=== PATIENT | female | born 1990 | race Caucasian/White ===

== ENCOUNTER 2024-04-29 17:40 | Emergency (ER) | payer BC ==
[~2024-04-29 17:40] MED LIST: Iopamidol 370 76% 100 ML VIAL ONE
[2024-04-29] MEDS ORDERED: fentaNYL 50 mcg/mL 1 mL Vial ONE (18:25)
[2024-04-29 18:39] LABS: Prothrombin Time 13.6 sec (12.0-14.7)
[2024-04-29 18:41] LABS: #Basophils 0.1 thou/uL (0.0-0.2); #Eosinphils 0.4 thou/uL (0.0-0.7); #Lymphocytes 1.3 thou/uL (1.20-3.40); #Monocytes 0.5 thou/uL (0.11-0.59); #Neutrophils 4.1 thou/uL (1.40-6.50); %Lymphocytes 20.9 % (21.0-51.0); %Monocytes 7.2 % (0.0-10.0); %Neutrophils 64.9 % (42.0-75.0); Hematocrit 30.2 % (36.0-47.0); Hemoglobin 9.1 g/dL (12.0-16.0); Mean Corpuscular HGB CONC 30.1 g/dL (32.0-36.0); Mean Corpuscular Hemoglobin 21.9 pg (27.0-31.0); Mean Corpuscular Volume 72.8 fl (78.0-98.0); Mean Platelet Volume 7.8 fL (7.4-10.4); Platelet Count 194 10x3/uL (130-400); Red Blood Cell (RBC) Count 4.14 mill/uL (4.20-5.40); White Blood Cell (WBC) Count 6.2 10x3/uL (4.8-10.8)
[2024-04-29 18:42] LABS: BHCG - Serum Negative (NEGATIVE); Pregs Control Background? CLEAR/WHITE (CLR/WHITE); Pregs Control Bar Appear? YES (CONTROL BAR)
[2024-04-29] MEDS ORDERED: Ondansetron PF 4 MG/2 ML Vial ONE (18:48)
[2024-04-29 18:51] LABS: ALT (SGPT) 12 U/L (8-55); AST (SGOT) 15 U/L (5-34); Albumin 3.8 g/dL (3.5-5.0); Alkaline Phosphatase 65 U/L (40-110); Anion Gap 11 mmol/L (10-20); BUN (Urea Nitrogen) 8 mg/dL (7.0-18.7); Bilirubin, Total 0.2 mg/dL (0.2-1.2); Calc. Creatinine Clearance 0 mL/min (70-130); Calcium 8.5 mg/dL (7.8-10.44); Carbon Dioxide 23 mmol/L (22-29); Chloride 108 mmol/L (98-107); Estimated GFR 120; Globulin 3.1 g/dL (2.4-3.5); Glucose 94 mg/dL (70-105); Lipase 24 U/L (8-78); Potassium 3.8 mmol/L (3.5-5.1); Protein, Total 6.9 g/dL (6.0-8.3); Sodium 138 mmol/L (136-145)
[2024-04-29 19:06] LABS: Hypochromia SLIGHT = 6-15 cells (100X) (0-5/hpf); Microcytosis SLIGHT = 6-15 cells (100X) (0-5/hpf)
[2024-04-29] MEDS ORDERED: Promethazine HCl 25 MG/ML VIAL ONE (19:17)
[2024-04-29] MEDS ORDERED: Sodium Chloride 0.9% 1,000 ML ONE (19:17)
[2024-04-29] MEDS ORDERED: Ketorolac Tromethamine 30 MG (1 mL) VIAL ONE (20:03)
[2024-04-29] MEDS ORDERED: Orphenadrine Citrate 60 MG/2 ML VIAL ONE (20:03)
[2024-04-29 20:04] LABS: Bilirubin Negative (Negative); Blood, Urine Moderate (Negative); Clarity Hazy (Clear); Glucose, Urine (Dipstick) Negative (Negative); Ketone, Urine Negative (Negative); Leukocyte Negative (Negative); Nitrite Negative (Negative); Protein, Urine (Dipstick) 30 mg/dL (Neg-Trace)
[2024-04-29 20:05] LABS: CAUTI Indications for Culture Pelvic or flank pain; RBC/HPF Greater than 50 HPF (0-3); Squamous Epithelial 0-3 HPF (0-3); Urine Culture Reflex No No; WBC/HPF None Seen HPF (0-3)
== END 2024-04-29 21:30 | disposition home or self-care (01) ==
LOC: MADERS 17:40
DX: S83.91XA Sprain of unspecified site of right knee, initial encounter (principal); D64.9 Anemia, unspecified; R11.0 Nausea; V49.9XXA Car occupant (driver) (passenger) injured in unspecified traffic accident, initial encounter
CPT/HCPCS: 36415; 70450; 70486; 71260; 72125; 74177; 80053; 81001; 83690; 84703; 85025; 85610; 85730; 86850; 86870; 86900; 86901; 94760; 96365; 96375; G0390; J1885; J2360; J2405; J2550; J3010; J7030; Q9967